=== PATIENT | female | born 1955 | race Caucasian/White ===

== ENCOUNTER 2024-05-02 20:42 | Emergency (ER) | payer MEDICARE, OTHER ==
[~2024-05-02] VITALS: Ht 160 cm; Wt 78.3 kg
[2024-05-02] MEDS ORDERED: ROSUVASTATIN CAL5 MG (20:54)
[2024-05-02] MEDS ORDERED: COZAAR25 MG (20:54)
[2024-05-02] MEDS ORDERED: NORVASC5 MG (20:54)
[2024-05-02] MEDS ORDERED: SYNTHROID100 MCG (20:54)
[2024-05-02] MEDS ORDERED: PROTONIX20 MG (20:55)
[2024-05-02 21:14] LABS: BASOPHILS 0.4 % (0-2); EOSINOPHILS 1.8 % (0-6); HEMATOCRIT 40.4 % (35.0-50.0); HEMOGLOBIN 13.5 g/dL (12.0-18.0); LYMPHOCYTES 20.5 % (24-44); MCH 30.5 (27-36); MCHC 33.3 g/dl (30-36); MCV 91.6 fl (81-99); MONOCYTES 8.2 % (0-12); NEUTROPHILS 69.1 % (39-80); PLATELET COUNT 261 K/uL (140-440); RBC 4.41 M/ul (4.3-5.7); RDW 13.1 (10.5-15.0)
[2024-05-02] MEDS ORDERED: IBLOOD GLUCOSE TEST STRIP 1 EA TEST XX ONE (21:15)
[2024-05-02 21:24] LABS: ALBUMIN 3.6 g/dL (3.4-5.0); ALBUMIN/GLOBULIN RATIO 1.16 (1.1-2.4); ANION GAP 12.1 (7-21); BILIRUBIN, TOTAL 0.9 ng/dL (0.2-1.0); BUN/CREATININE RATIO 14.75 (6.0-28.6); CALCIUM 9.1 mg/dL (8.5-10.1); CREATININE, SERUM 1.22 mg/dL (0.55-1.02); MAGNESIUM 2.2 mg/dL (1.8-2.4); POTASSIUM 4.1 mmol/L (3.5-5.1); PROTEIN, TOTAL 6.7 g/dL (6.4-8.2)
[2024-05-02 22:00] VITALS: BP 135/59
--- NOTE | 2024-05-03 13:48 | EKG ---
[facility] [address] [facility] [place] [address] Signed Normal sinus rhythm Minimal voltage criteria for LVH, may be normal variant ( R in aVL ) Inferior infarct , age undetermined Abnormal ECG No previous ECGs available Confirmed by Tameka Germain MD ([id number]) on 05/03/2024 1:47:57 PM Electronically Signed By: TAMEKA GERMAIN 05/03/24 1348 PATIENT NAME: ANDREWNATALIYA Electrocardiogram DATE OF : 55 PHYSICIAN: TAMEKA GEMRAIN REPORT #: [id number] REPORT IS CONFIDENTIAL AND NOT TO BE RELEASED WITHOUT AUTHORIZATION
== END 2024-05-02 22:10 | disposition home or self-care (01) ==
LOC: ED 20:42
PROVIDERS: Internal Medicine
DX: T67.5XXA Heat exhaustion, unspecified, initial encounter (principal); X30.XXXA Exposure to excessive natural heat, initial encounter; E86.0 Dehydration; I10 Essential (primary) hypertension; K21.9 Gastro-esophageal reflux disease without esophagitis; E78.5 Hyperlipidemia, unspecified; Z79.899 Other long term (current) drug therapy; Z79.890 Hormone replacement therapy
CPT/HCPCS: 36415; 80053; 83735; 84484; 85025; 93005; 93010; 99284